=== PATIENT | female | born 1995 | race American Indian/Alaskan Native ===

== ENCOUNTER 2019-11-18 23:52 | Outpatient (CLI) | payer OTHER ==
[2019-11-19 00:04] VITALS: BP 122/71
--- NOTE | 2019-11-19 01:24 | Ultrasound Report ---
ULTRASOUND OBSTETRIC LIMITED INDICATION / CLINICAL INFORMATION: questionable SROM. Clinical Gestational Age (GA): 38.4 weeks.days COMPARISON: None available. FINDINGS: HEART RATE (beats per minute): 134 AMNIOTIC FLUID INDEX (cm) = 17.3 (normal = 7-24 cm) PRESENTATION: Cephalic. ADDITIONAL FINDINGS: None. IMPRESSION: 1. No acute abnormality. Normal amniotic fluid index. Signer Name: Cindy Webb MD Signed: 11/19/2019 1:19 AM Workstation Name: [id number]
== END 2019-11-19 01:00 | disposition home or self-care (01) ==
LOC: TRG 23:52 → APU 23:58 → TRG 11-19 01:00
PROVIDERS: ATTEND Obstetrics & Gynecology
DX: O47.1 False labor at or after 37 completed weeks of gestation (principal); Z3A.38 38 weeks gestation of pregnancy
CPT/HCPCS: 59025; 76815

== ENCOUNTER 2019-11-21 12:01 | Outpatient (CLI) | payer OTHER ==
[2019-11-21] MEDS ORDERED: ONDANSETRON 4 MG/2 ML INJ IV ONE (12:09)
[2019-11-21] MEDS ORDERED: LACTATED RINGERS 1,000 ML IV ONE (12:10)
[2019-11-21 12:47] VITALS: BP 121/64
[2019-11-21] MEDS ORDERED: ACETAMINOPHEN 500 MG TAB PO ONE (13:00)
== END 2019-11-21 14:55 | disposition home or self-care (01) ==
LOC: TRG 12:01 → APU 12:01 → TRG 14:55
PROVIDERS: ATTEND Obstetrics & Gynecology
DX: O62.9 Abnormality of forces of labor, unspecified (principal); Z3A.38 38 weeks gestation of pregnancy; Z87.891 Personal history of nicotine dependence
CPT/HCPCS: 59025; 96361; 96374; J2405; J7120; 96360

== ENCOUNTER 2019-11-21 23:40 | Inpatient (IN) | payer OTHER ==
[2019-11-22] MEDS ORDERED: TERBUTALINE 1 MG/1 ML INJ IVP PRN (01:31)
[2019-11-22] MEDS ORDERED: LIDOCAINE (2%) 20 MG/1 ML VIAL 20 ML MDV INFILTRATI ONE (01:31)
[2019-11-22] MEDS ORDERED: PROMETHAZINE 25 MG TAB PO PRN ×2 (01:31→21:51)
[2019-11-22] MEDS ORDERED: TERBUTALINE 1 MG/1 ML INJ SUB-Q PRN (01:31)
[2019-11-22] MEDS ORDERED: NALOXONE 0.4 MG/1 ML INJ IV PRN (01:31)
[2019-11-22] MEDS ORDERED: MINERAL OIL 30 ML ORAL LIQD PO PRN (01:31)
[2019-11-22] MEDS ORDERED: ePHEDrine SULFATE 50 MG/1 ML INJ IV PRN ×2 (01:31→04:15)
[2019-11-22] MEDS ORDERED: fentaNYL 100 MCG/2 ML INJ IV PRN (01:31)
--- NOTE | 2019-11-22 01:39 | History and Physical Report ---
History of Present Illness Date of examination: 11/22/19 (SROM@ 11pm for mec stained fluid) Date of admission: 11/22/2019 Chief complaint: I'm having contractions and my water broke at 11pm. The fluid coming out was brown. History of present illness: EDC Confirmation: 11/29/2019 Gestational Age: 8 3/7 weeks Past History : 1 Term Births: 0 Premature Births: 0 Living Children: 0 Para: 0 Mult. Births: 0 Prev : 0 Prev. attempt? 0 Aborta: 0 Elect. Ab: 0 Spont. 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 lives with mother and siblings denies alcohol and drug use. quit tobacco apr 2019 unemployed Infection History Hx of STD: none HIV Risk Eval: no Hepatitis B Risk Eval: low risk Personal hx. of genital herpes: no Partner hx. of genital herpes: no Rash, Viral, or Febrile illness since last LMP? no Varicella/Chicken Pox Status: Immunized TB Risk: no Genetic History Congenital Heart Defect: Mom: no Dad: no Kam Disease: Mom: no Dad: no Thalassemia Mom: no Dad: no Neural Tube Defect Mom: no Dad: no Down's Syndrome Mom: no Dad: yes Comments: FOCs nephew possible +DS? Nahun-Sachs Mom: no Dad: no Sickle Cell Disease/Trait Mom: no Dad: no Hemophilia Mom: no Dad: no Muscular Dystrophy Mom: no Dad: no Cystic Fibrosis Mom: no Dad: no [place] Chorea Mom: no Dad: no Mental Retardation Mom: no Dad: no Fragile X Mom: no Dad: no Other Genetic/Chromosomal Disorder Mom: no Dad: no Child w/other defect Mom: no Dad: no Enviromental Exposures Enviromental Exposures Reviewed Xray Exposure: no Medication, drug, or alcohol use since LMP: no Chemical/Other Exposure: no Exposure to Cat Liter: no Hx of Parvovirus (Fifth Disease): no Occupational Exposure to Children: none Active Medications: None Current Allergies: * BETADINE (Critical) Past History Past Medical History: no pertinent history Past Surgical History: no surgical history Family/Genetic History: none Social history: no significant social history - Obstetrical History Expected Date of Delivery: 11/29/19 Actual Gestation: 39 Week(s) 0 Day(s) : 1 Para: 0 Hx # Term Pregnancies: 0 Number of Pregnancies: 0 Spontaneous Abortions: 0 Induced : 0 Number of Living Children: 0 Medications and Allergies Allergies Allergy/AdvReac Type Severity Reaction Status Date / Time povidone-iodine Allergy Rash Unverified 11/18/19 23:53 [From Betadine] soap [From Betadine] Allergy Rash Unverified 11/18/19 23:53 Active Meds: Active Medications Lidocaine (Xylocaine 2%) 20 ml INFILTRATI ONCE ONE Stop: 11/22/19 01:32 Terbutaline Sulfate (Brethine) 0.25 mg SUB-Q ONCE PRN PRN Reason: Hyperstimulation/Hypertonicity Terbutaline Sulfate (Brethine) 0.25 mg IVP ONCE PRN PRN Reason: Hyperstimulation/Hypertonicity Review of Systems All systems: negative - Vital Signs Vital signs: Vital Signs Pulse BP Pulse Ox 95 H 124/73 100 11/22/19 00:03 11/22/19 00:03 11/22/19 00:03 Temp Pulse Resp BP Pulse Ox 98.4 F 87 18 124/73 96 11/22/19 00:18 11/22/19 01:13 11/22/19 00:18 11/22/19 00:18 11/22/19 01:13 - Physical Exam Breasts: Positive: deferred Cardiovascular: Regular rate, Normal S1, Normal S2 Lungs: Positive: Normal air movement Abdomen: Positive: normal appearance, soft Genitourinary (Female): Positive: normal external genitalia, normal perenium Vulva: both: normal Vagina: Positive: normal moisture. Negative: discharge Cervix: Negative: lesion, discharge Uterus: Positive: normal size, normal contour Anus/Rectum: Positive: normal perianal skin, heme negative. Negative: rectal mass, hemorrhoids Extremities: Positive: normal Deep Tendon Reflex Grade: Normal +2 - Obstetrical FHR: auscultation normal, category 1 Uterine Contraction Monitor Mode: External Cervical Dilatation: 2 (Brown fluid noted on exam glove) Cervical Effacement Percentage: 60 station: -2 Uterine Contraction Pattern: Regular Uterine Tone Measurement Phase: Resting Uterine Contraction Intensity: Moderate Results All other labs normal. GBS NEGATIVE HBsAg Screen Negative Negative *1 RPR Non Reactive Non Reactive *2 Rubella Antibodies, IgG 1.44 index Immune >0.99 *3 Non-immune <0.90 Equivocal 0.90 - 0.99 Immune >0.99 ABO Grouping O *4 Rh Factor Positive *5 Please note: Prior records for this patient's ABO / Rh type are not available for additional verification. Antibody Screen Negative Negative *6 WBC 5.5 x10E3/uL 3.4-10.8 *7 RBC 3.93 x10E6/uL 3.77-5.28 *8 Hemoglobin 11.9 g/dL 11.1-15.9 *9 Hematocrit 36.9 % 34.0-46.6 *10 MCV 94 fL 79-97 *11 MCH 30.3 pg 26.6-33.0 *12 MCHC 32.2 g/dL 31.5-35.7 *13 RDW 14.1 % 12.3-15.4 *14 Platelets 265 x10E3/uL 150-450 *15 Neutrophils 64 % Not Estab. *16 Lymphs 28 % Not Estab. *17 Monocytes 6 % Not Estab. *18 Eos 1 % Not Estab. *19 Basos 0 % Not Estab. *20 ! Immature Cells <No Reported Value> *21 Neutrophils (Absolute) 3.5 x10E3/uL 1.4-7.0 *22 Lymphs (Absolute) 1.6 x10E3/uL 0.7-3.1 *23 Monocytes(Absolute) 0.4 x10E3/uL 0.1-0.9 *24 Eos (Absolute) 0.0 x10E3/uL 0.0-0.4 *25 Baso (Absolute) 0.0 x10E3/uL 0.0-0.2 *26 ! Immature Granulocytes 1 % Not Estab. *27 ! Immature Grans (Abs) 0.0 x10E3/uL 0.0-0.1 *28 ! NRBC <No Reported Value> *29 Hematology Comments: <No Reported Value> *30 Tests: (2) HB Solu + Rflx Fra (739745) Hemoglobin (Hgb) Solubility Negative Negative *31 Tests: (3) Panel 653919 ([id number]) HIV Screen 4th Generation wRfx Non Reactive Non Reactive *32 Tests: (4) HCV Ab w/Rflx to Verification (061908) ! HCV Ab <0.1 s/co ratio 0.0-0.9 *33 Tests: (5) Comment: ([id number]) ! Comment: SPR *34 Assessment and Plan A: 24 y.o. @ term. SROM @ 11pm for mec stained fluid. Cervical exam /-2. P: Admit to L&D. Pitocin per protocol. Fluid bolus for epidural placement when ready. - Patient Problems (1) Rupture of membranes with meconium present Current Visit: Yes Status: Acute Plan to address problem: 1. [facility] team to be present during delivery. 2. Monitor maternal temperature. 3. Monitor status during labor. (2) 38 weeks gestation of Current Visit: Yes Status: Acute Plan to address problem: Monitor maternal and status during labor.
[2019-11-22] MEDS ORDERED: diphenhydrAMINE 25 MG CAP PO PRN (01:52)
[2019-11-22] MEDS ORDERED: OXYTOCIN DRIP 30 UNITS/500 ML BAG IV SCH (02:00)
[2019-11-22] MEDS ORDERED: OXYTOCIN 20 UNIT/1000ML DRIP 20 UNITS/1,000 ML BAG IV SCH ×2 (02:00→21:51)
--- NOTE | 2019-11-22 03:41 | Progress Note ---
Assessment and Plan A: 24 y.o. @ term, SROM @ 11pm on 11/20 for mec stained fluid. Crying out in pain. Cervical exam 2/80/-2. Contractions q 2minutes. P: Fluid bolus started for epidural placement. Pain medication while awaiting epidural placement. Anticipate . - Patient Problems (1) Rupture of membranes with meconium present Current Visit: Yes Status: Acute (2) 38 weeks gestation of Current Visit: Yes Status: Acute Subjective - Subjective Date of service: 11/22/19 (More painful contractions.) Principal diagnosis: SROM for mec stained fluid @ term Interval history: EDC Confirmation: 11/29/2019 Gestational Age: 8 3/7 weeks Past History : 1 Term Births: 0 Premature Births: 0 Living Children: 0 Para: 0 Mult. Births: 0 Prev : 0 Prev. attempt? 0 Aborta: 0 Elect. Ab: 0 Spont. 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 lives with mother and siblings denies alcohol and drug use. quit tobacco apr 2019 unemployed Infection History Hx of STD: none HIV Risk Eval: no Hepatitis B Risk Eval: low risk Personal hx. of genital herpes: no Partner hx. of genital herpes: no Rash, Viral, or Febrile illness since last LMP? no Varicella/Chicken Pox Status: Immunized TB Risk: no Genetic History Congenital Heart Defect: Mom: no Dad: no Kam Disease: Mom: no Dad: no Thalassemia Mom: no Dad: no Neural Tube Defect Mom: no Dad: no Down's Syndrome Mom: no Dad: yes Comments: FOCs nephew possible +DS? Nahun-Sachs Mom: no Dad: no Sickle Cell Disease/Trait Mom: no Dad: no Hemophilia Mom: no Dad: no Muscular Dystrophy Mom: no Dad: no Cystic Fibrosis Mom: no Dad: no [place] Chorea Mom: no Dad: no Mental Retardation Mom: no Dad: no Fragile X Mom: no Dad: no Other Genetic/Chromosomal Disorder Mom: no Dad: no Child w/other defect Mom: no Dad: no Enviromental Exposures Enviromental Exposures Reviewed Xray Exposure: no Medication, drug, or alcohol use since LMP: no Chemical/Other Exposure: no Exposure to Cat Liter: no Hx of Parvovirus (Fifth Disease): no Occupational Exposure to Children: none Active Medications: None Current Allergies: * BETADINE (Critical) Patient reports: other (Patient screaming out in pain from contractions. ) Objective - Vital Signs Vital Signs: Vital Signs - 12hr 11/22/19 11/22/19 11/22/19 00:03 00:08 00:13 Temperature Pulse Rate 95 H 104 H 110 H Respiratory Rate Blood Pressure 124/73 Blood Pressure [Right] O2 Sat by Pulse 100 99 100 Oximetry 11/22/19 11/22/19 11/22/19 00:15 00:18 00:23 Temperature 98.4 F Pulse Rate 90 85 96 H Respiratory 18 Rate Blood Pressure Blood Pressure 124/73 [Right] O2 Sat by Pulse 91 99 99 Oximetry 11/22/19 11/22/19 11/22/19 00:28 00:33 00:36 Temperature Pulse Rate 90 94 H 85 Respiratory Rate Blood Pressure Blood Pressure [Right] O2 Sat by Pulse 99 98 94 Oximetry 11/22/19 11/22/19 11/22/19 00:38 00:41 00:43 Temperature Pulse Rate 82 104 H 86 Respiratory Rate Blood Pressure Blood Pressure [Right] O2 Sat by Pulse 100 82 L 99 Oximetry 11/22/19 11/22/19 11/22/19 00:47 00:48 00:53 Temperature Pulse Rate 102 H 101 H 90 Respiratory Rate Blood Pressure Blood Pressure [Right] O2 Sat by Pulse 91 99 97 Oximetry 11/22/19 11/22/19 11/22/19 00:58 01:03 01:08 Temperature Pulse Rate 83 96 H 93 H Respiratory Rate Blood Pressure Blood Pressure [Right] O2 Sat by Pulse 99 97 98 Oximetry 11/22/19 11/22/19 11/22/19 01:13 02:13 02:15 Temperature Pulse Rate 87 90 101 H Respiratory Rate Blood Pressure 98/56 Blood Pressure [Right] O2 Sat by Pulse 96 98 Oximetry 11/22/19 11/22/19 11/22/19 02:20 02:25 02:30 Temperature Pulse Rate 96 H 98 H 84 Respiratory Rate Blood Pressure Blood Pressure [Right] O2 Sat by Pulse 98 98 98 Oximetry 11/22/19 11/22/19 11/22/19 03:05 03:24 03:29 Temperature Pulse Rate 82 105 H 95 H Respiratory 18 Rate Blood Pressure Blood Pressure 133/65 [Right] O2 Sat by Pulse 100 100 Oximetry 11/22/19 03:34 Temperature Pulse Rate 92 H Respiratory Rate Blood Pressure Blood Pressure [Right] O2 Sat by Pulse 100 Oximetry - Exam Breasts: deferred Cardiovascular: Regular rate Lungs: Normal air movement Abdomen: Present: normal appearance, soft. Absent: distention, tenderness Vulva: both: normal Uterus: Present: normal FHR: auscultation normal Uterine Contraction Monitor Mode: External Cervical Dilatation: 2 (Pt screaming out in pain, stating IV meds not working. ) Cervical Effacement Percentage: 80 station: -2 Uterine Contraction Pattern: Regular Uterine Tone Measurement Phase: Resting Uterine Contraction Intensity: Moderate Extremities: normal Deep Tendon Reflex Grade: Normal +2
[2019-11-22] MEDS ORDERED: DEXMEDETOMIDINE 200 MCG/2 ML VIAL IV ONE (03:58)
[2019-11-22] MEDS ORDERED: NALOXONE 2 MG/2 ML INJ IV PRN (04:15)
--- NOTE | 2019-11-22 04:16 | Anesthesia Consultation ---
Anesthesia Consult and Med Hx Date of service: 11/22/19 - Airway Anesthetic Teeth Evaluation: Good ROM Head & Neck: Adequate Mental/Hyoid Distance: Adequate Mallampati Class: Class II Intubation Access Assessment: Probably Good - Pulmonary Exam CTA: Yes - Cardiac Exam Cardiac Exam: RRR - Pre-Operative Health Status ASA Pre-Surgery Classification: ASA2 Proposed Anesthetic Plan: Epidural - Pulmonary Hx Asthma: No COPD: No - Cardiovascular System Hx Hypertension: No - Central Nervous System Hx Seizures: No Hx Psychiatric Problems: No - Endocrine Hx Renal Disease: No Hx End Stage Renal Disease: No Hx Hypothyroidism: No Hx Hyperthyroidism: No - Hematic Hx Anemia: No Hx Sickle Cell Disease: No - Other Systems Hx Alcohol Use: No
[2019-11-22] MEDS: LACTATED RINGERS 1,000 ML IV SCH ×4 (04:36→15:49)
[2019-11-22 04:37] LABS: Hematocrit 36.7 % (30.3-42.9); Mean Corpuscular HGB Conc 33 % (30-34); Mean Corpuscular Volume 82 fl (79-97); Platelet Count 319 K/mm3 (140-440); Red Blood Count 4.46 M/mm3 (3.65-5.03); Red Cell Distribution Width 15.2 % (13.2-15.2)
[2019-11-22] MEDS: fentaNYL-BUPIV 2 MCG/ML-0.125% 200 MCG/100 ML BAG EPIDURAL SCH ×2 (05:07→11:47)
[2019-11-22] MEDS ORDERED: BUPIVACAINE/PF (0.25%) 2.5 MG/ML 10 ML VIAL INFILTRATI ONE (10:29)
[2019-11-22] MEDS ORDERED: diphenhydrAMINE 50 MG/ML VIAL IV ONE (11:07)
[2019-11-22] MEDS ORDERED: diphenhydrAMINE 50 MG/ML VIAL ONE (11:10)
[2019-11-22] MEDS ORDERED: NalbUPHINE 10 MG/1 ML INJ ONE (11:12)
--- NOTE | 2019-11-22 11:14 | Progress Note ---
Assessment and Plan patient has functioning epidural but is overwhelmed with pressure and back pain. Epidural has been replaced twice, anesthesia offered to replace again since bolus has not relieved pain but explained that it is unlikely the pain she is feeling will be helped with epidural. Cervix is now edematous from patient pushing down with every ctx. Attempting to utilize different positions to help with pain but patient does not tolerate. Will reduce pitocin to 2mU and try dose of IV benadryl and sedation. - Patient Problems (1) 39 weeks gestation of Current Visit: Yes Status: Acute (2) Rupture of membranes with meconium present Current Visit: Yes Status: Acute Subjective - Subjective Date of service: 11/22/19 Principal diagnosis: IUP @ 39 weeks, Laboring, mec stained fluid Patient reports: other (Patient screaming out in pain from contractions. ) Objective - Vital Signs Vital Signs: Vital Signs - 12hr 11/22/19 11/22/19 11/22/19 00:03 00:08 00:13 Temperature Pulse Rate 95 H 104 H 110 H Respiratory Rate Blood Pressure 124/73 Blood Pressure [Right] O2 Sat by Pulse 100 99 100 Oximetry 11/22/19 11/22/19 11/22/19 00:15 00:18 00:23 Temperature 98.4 F Pulse Rate 90 85 96 H Respiratory 18 Rate Blood Pressure Blood Pressure 124/73 [Right] O2 Sat by Pulse 91 99 99 Oximetry 11/22/19 11/22/19 11/22/19 00:28 00:33 00:36 Temperature Pulse Rate 90 94 H 85 Respiratory Rate Blood Pressure Blood Pressure [Right] O2 Sat by Pulse 99 98 94 Oximetry 11/22/19 11/22/19 11/22/19 00:38 00:41 00:43 Temperature Pulse Rate 82 104 H 86 Respiratory Rate Blood Pressure Blood Pressure [Right] O2 Sat by Pulse 100 82 L 99 Oximetry 11/22/19 11/22/19 11/22/19 00:47 00:48 00:53 Temperature Pulse Rate 102 H 101 H 90 Respiratory Rate Blood Pressure Blood Pressure [Right] O2 Sat by Pulse 91 99 97 Oximetry 11/22/19 11/22/19 11/22/19 00:58 01:03 01:08 Temperature Pulse Rate 83 96 H 93 H Respiratory Rate Blood Pressure Blood Pressure [Right] O2 Sat by Pulse 99 97 98 Oximetry 0411/22/19 11/22/19 01:13 02:13 02:15 Temperature Pulse Rate 87 90 101 H Respiratory Rate Blood Pressure 98/56 Blood Pressure [Right] O2 Sat by Pulse 96 98 Oximetry 11/22/19 11/22/19 11/22/19 02:20 02:25 02:30 Temperature Pulse Rate 96 H 98 H 84 Respiratory Rate Blood Pressure Blood Pressure [Right] O2 Sat by Pulse 98 98 98 Oximetry 11/22/19 11/22/19 11/22/19 03:05 03:22 03:24 Temperature Pulse Rate 82 105 H Respiratory 18 18 Rate Blood Pressure Blood Pressure 133/65 [Right] O2 Sat by Pulse 100 Oximetry 11/22/19 11/22/19 11/22/19 03:29 03:34 03:39 Temperature Pulse Rate 95 H 92 H 100 H Respiratory Rate Blood Pressure Blood Pressure [Right] O2 Sat by Pulse 100 100 98 Oximetry 11/22/19 11/22/19 11/22/19 03:42 03:44 03:49 Temperature Pulse Rate 81 81 97 H Respiratory Rate Blood Pressure Blood Pressure [Right] O2 Sat by Pulse 92 99 100 Oximetry 11/22/19 11/22/19 11/22/19 04:00 04:01 04:06 Temperature Pulse Rate 34 L 115 H 87 Respiratory Rate Blood Pressure Blood Pressure [Right] O2 Sat by Pulse 83 L 96 100 Oximetry 11/22/19 11/22/19 11/22/19 04:11 04:13 04:16 Temperature Pulse Rate 87 67 75 Respiratory Rate Blood Pressure 121/60 Blood Pressure [Right] O2 Sat by Pulse 96 100 Oximetry 11/22/19 11/22/19 11/22/19 04:18 04:21 04:24 Temperature Pulse Rate 68 62 74 Respiratory Rate Blood Pressure 115/57 115/66 Blood Pressure [Right] O2 Sat by Pulse 100 Oximetry 11/22/19 11/22/19 11/22/19 04:26 04:29 04:31 Temperature Pulse Rate 76 71 82 Respiratory Rate Blood Pressure 138/59 Blood Pressure [Right] O2 Sat by Pulse 100 99 Oximetry 11/22/19 11/22/19 11/22/19 04:34 04:36 04:39 Temperature Pulse Rate 66 75 70 Respiratory Rate Blood Pressure 122/61 127/69 Blood Pressure [Right] O2 Sat by Pulse 100 Oximetry 11/22/19 11/22/19 11/22/19 04:41 04:43 04:46 Temperature Pulse Rate 67 84 84 Respiratory Rate Blood Pressure 112/58 Blood Pressure [Right] O2 Sat by Pulse 100 100 Oximetry 11/22/19 11/22/19 11/22/19 04:48 04:51 04:54 Temperature Pulse Rate 81 79 80 Respiratory Rate Blood Pressure 108/59 98/54 Blood Pressure [Right] O2 Sat by Pulse 99 Oximetry 11/22/19 11/22/19 11/22/19 04:56 05:00 05:01 Temperature Pulse Rate 100 H 82 90 Respiratory Rate Blood Pressure 95/51 Blood Pressure [Right] O2 Sat by Pulse 100 99 Oximetry 11/22/19 11/22/19 11/22/19 05:04 05:06 05:11 Temperature Pulse Rate 64 87 74 Respiratory Rate Blood Pressure 109/59 Blood Pressure [Right] O2 Sat by Pulse 100 99 Oximetry 11/22/19 11/22/19 11/22/19 05:16 05:21 05:24 Temperature Pulse Rate 82 82 81 Respiratory Rate Blood Pressure 107/63 Blood Pressure [Right] O2 Sat by Pulse 100 100 Oximetry 11/22/19 11/22/19 11/22/19 05:26 05:31 05:36 Temperature Pulse Rate 90 92 H 96 H Respiratory Rate Blood Pressure Blood Pressure [Right] O2 Sat by Pulse 99 99 100 Oximetry 11/22/19 11/22/19 11/22/19 05:38 05:41 05:46 Temperature Pulse Rate 108 H 88 90 Respiratory Rate Blood Pressure 88/49 Blood Pressure [Right] O2 Sat by Pulse 100 100 Oximetry 11/22/19 11/22/19 11/22/19 05:51 05:54 05:56 Temperature Pulse Rate 79 80 81 Respiratory Rate Blood Pressure 111/58 Blood Pressure [Right] O2 Sat by Pulse 100 100 Oximetry 11/22/19 11/22/19 11/22/19 06:01 06:06 06:08 Temperature Pulse Rate 86 90 81 Respiratory Rate Blood Pressure 103/51 Blood Pressure [Right] O2 Sat by Pulse 99 99 Oximetry 11/22/19 11/22/19 11/22/19 06:11 06:16 06:21 Temperature Pulse Rate 84 83 75 Respiratory Rate Blood Pressure Blood Pressure [Right] O2 Sat by Pulse 100 98 100 Oximetry 11/22/19 11/22/19 11/22/19 06:25 06:26 06:31 Temperature Pulse Rate 74 73 77 Respiratory Rate Blood Pressure 113/59 Blood Pressure [Right] O2 Sat by Pulse 100 100 Oximetry 11/22/19 11/22/19 11/22/19 06:36 06:38 06:41 Temperature Pulse Rate 77 70 78 Respiratory Rate Blood Pressure 108/54 Blood Pressure [Right] O2 Sat by Pulse 100 100 Oximetry 11/22/19 11/22/19 11/22/19 06:46 06:51 06:53 Temperature Pulse Rate 86 79 73 Respiratory Rate Blood Pressure 100/54 Blood Pressure [Right] O2 Sat by Pulse 100 100 Oximetry 11/22/19 11/22/19 11/22/19 06:56 07:01 07:06 Temperature Pulse Rate 96 H 75 95 H Respiratory Rate Blood Pressure Blood Pressure [Right] O2 Sat by Pulse 100 100 100 Oximetry 11/22/19 11/22/19 11/22/19 07:09 07:11 07:16 Temperature Pulse Rate 78 92 H 108 H Respiratory Rate Blood Pressure 103/72 Blood Pressure [Right] O2 Sat by Pulse 99 100 Oximetry 11/22/19 11/22/19 11/22/19 07:21 07:23 07:26 Temperature Pulse Rate 88 99 H 81 Respiratory Rate Blood Pressure 110/56 Blood Pressure [Right] O2 Sat by Pulse 98 100 Oximetry 11/22/19 11/22/19 11/22/19 07:31 07:36 07:40 Temperature Pulse Rate 90 84 92 H Respiratory Rate Blood Pressure 95/56 Blood Pressure [Right] O2 Sat by Pulse 100 100 Oximetry 11/22/19 11/22/19 11/22/19 07:41 07:46 07:51 Temperature Pulse Rate 96 H 93 H 104 H Respiratory Rate Blood Pressure Blood Pressure [Right] O2 Sat by Pulse 100 100 100 Oximetry 11/22/19 11/22/19 11/22/19 07:53 07:56 08:01 Temperature Pulse Rate 104 H 125 H 97 H Respiratory Rate Blood Pressure 93/52 Blood Pressure [Right] O2 Sat by Pulse 100 100 Oximetry 11/22/19 11/22/19 11/22/19 08:06 08:08 08:11 Temperature Pulse Rate 117 H 114 H 107 H Respiratory Rate Blood Pressure 92/49 Blood Pressure [Right] O2 Sat by Pulse 100 100 Oximetry 11/22/19 11/22/19 11/22/19 08:12 08:16 08:21 Temperature Pulse Rate 110 H 109 H 92 H Respiratory Rate Blood Pressure 102/62 Blood Pressure [Right] O2 Sat by Pulse 100 100 Oximetry 11/22/19 11/22/19 11/22/19 08:23 08:26 08:31 Temperature Pulse Rate 93 H 101 H 95 H Respiratory Rate Blood Pressure 119/74 Blood Pressure [Right] O2 Sat by Pulse 100 100 Oximetry 11/22/19 11/22/19 11/22/19 08:36 08:39 08:41 Temperature Pulse Rate 100 H 94 H 93 H Respiratory Rate Blood Pressure 117/73 Blood Pressure [Right] O2 Sat by Pulse 86 86 100 Oximetry 11/22/19 11/22/19 11/22/19 08:46 08:51 08:53 Temperature Pulse Rate 93 H 90 80 Respiratory Rate Blood Pressure 105/61 Blood Pressure [Right] O2 Sat by Pulse 100 100 Oximetry 11/22/19 11/22/19 11/22/19 08:56 08:59 09:01 Temperature 97.9 F Pulse Rate 89 91 H Respiratory Rate Blood Pressure Blood Pressure [Right] O2 Sat by Pulse 99 99 Oximetry 11/22/19 11/22/19 11/22/19 09:06 09:08 09:11 Temperature Pulse Rate 91 H 86 89 Respiratory Rate Blood Pressure 107/61 Blood Pressure [Right] O2 Sat by Pulse 99 98 Oximetry 11/22/19 11/22/19 11/22/19 09:16 09:21 09:24 Temperature Pulse Rate 90 91 H 84 Respiratory Rate Blood Pressure 110/62 Blood Pressure [Right] O2 Sat by Pulse 99 99 Oximetry 11/22/19 11/22/19 11/22/19 09:26 09:31 09:36 Temperature Pulse Rate 97 H 93 H 92 H Respiratory Rate Blood Pressure Blood Pressure [Right] O2 Sat by Pulse 98 98 99 Oximetry 11/22/19 11/22/19 11/22/19 09:38 09:41 09:46 Temperature Pulse Rate 97 H 90 109 H Respiratory Rate Blood Pressure 106/60 Blood Pressure [Right] O2 Sat by Pulse 98 96 Oximetry 04/18/20 04/18/20 04/18/20 09:51 09:55 09:56 Temperature Pulse Rate 96 H 95 H 109 H Respiratory Rate Blood Pressure 110/61 Blood Pressure [Right] O2 Sat by Pulse 98 99 Oximetry 11/22/19 11/22/19 11/22/19 10:01 10:06 10:09 Temperature Pulse Rate 103 H 100 H 109 H Respiratory Rate Blood Pressure 113/61 Blood Pressure [Right] O2 Sat by Pulse 99 98 Oximetry 11/22/19 11/22/19 11/22/19 10:11 10:16 10:21 Temperature Pulse Rate 103 H 103 H 99 H Respiratory Rate Blood Pressure Blood Pressure [Right] O2 Sat by Pulse 98 99 98 Oximetry 11/22/19 11/22/19 11/22/19 10:25 10:26 10:39 Temperature Pulse Rate 96 H 109 H 107 H Respiratory Rate Blood Pressure 108/57 126/72 Blood Pressure [Right] O2 Sat by Pulse 100 Oximetry 11/22/19 10:53 Temperature Pulse Rate 101 H Respiratory Rate Blood Pressure 130/72 Blood Pressure [Right] O2 Sat by Pulse Oximetry - Exam Cardiovascular: Regular rate Lungs: Normal air movement Abdomen: Present: normal appearance, soft FHR: category 2 Uterine Contraction Monitor Mode: External Cervical Dilatation: 6.5 Cervical Effacement Percentage: 80 station: 0 Uterine Contraction Frequency (min): 2-3 Uterine Contraction Duration: 60 Uterine Contraction Pattern: Regular Uterine Tone Measurement Phase: Contraction Uterine Contraction Intensity: Strong/Firm Extremities: normal Deep Tendon Reflex Grade: Normal +2 - Labs Labs: Abnormal Labs 11/22/19 03:59 MCH 27 L Laboratory Results - last 24 hr 11/22/19 11/22/19 11/22/19 03:59 03:59 03:59 WBC 9.6 RBC 4.46 Hgb 12.0 Hct 36.7 MCV 82 MCH 27 L MCHC 33 RDW 15.2 Plt Count 319 Syphilis IgG Antibody Non-reactive Blood Type O POSITIVE Antibody Screen Negative
[2019-11-22] MEDS ORDERED: NalbUPHINE 10 MG/1 ML INJ IV ONE (11:26)
[2019-11-22] MEDS ORDERED: NalbUPHINE 10 MG/1 ML INJ IV PRN (11:26)
[2019-11-22] MEDS ORDERED: BUPIVACAINE/PF (0.5%) 5 MG/1 ML 10 ML VIAL INFILTRATI ONE (12:04)
--- NOTE | 2019-11-22 13:33 | Progress Note ---
Assessment and Plan patient comfortable s/p epidural replacement, sleeping without any concerns. Very limited cervical change noted since last exam. IUPC placed without difficulty and working well. Fever of 101.6 noted. Urine output decreased. Will give IVF bolus and monitor closely. Now that patient is comfortable, will increase pitocin for adequate labor and reposition patient frequently. - Patient Problems (1) 39 weeks gestation of Current Visit: Yes Status: Acute (2) Rupture of membranes with meconium present Current Visit: Yes Status: Acute (3) Fever Current Visit: Yes Status: Acute Qualifiers: Fever type: fever during labor (maternal) Qualified Code(s): O75.2 - Pyrexia during labor, not elsewhere classified Plan to address problem: Start Ampicillin Tylenol PO Closely monitor for s/s chorio Subjective - Subjective Date of service: 11/22/19 Principal diagnosis: IUP @ 39 weeks, Laboring, mec stained fluid Patient reports: new complaints (comfortable with epidural replacement) Objective - Vital Signs Vital Signs: Vital Signs - 12hr 11/22/19 11/22/19 11/22/19 02:13 02:15 02:20 Temperature Pulse Rate 90 101 H 96 H Respiratory Rate Blood Pressure 98/56 Blood Pressure [Right] O2 Sat by Pulse 98 98 Oximetry 11/22/19 11/22/19 11/22/19 02:25 02:30 03:05 Temperature Pulse Rate 98 H 84 82 Respiratory 18 Rate Blood Pressure Blood Pressure 133/65 [Right] O2 Sat by Pulse 98 98 Oximetry 11/22/19 11/22/19 11/22/19 03:22 03:24 03:29 Temperature Pulse Rate 105 H 95 H Respiratory 18 Rate Blood Pressure Blood Pressure [Right] O2 Sat by Pulse 100 100 Oximetry 11/22/19 11/22/19 11/22/19 03:34 03:39 03:42 Temperature Pulse Rate 92 H 100 H 81 Respiratory Rate Blood Pressure Blood Pressure [Right] O2 Sat by Pulse 100 98 92 Oximetry 11/22/19 11/22/19 11/22/19 03:44 03:49 04:00 Temperature Pulse Rate 81 97 H 34 L Respiratory Rate Blood Pressure Blood Pressure [Right] O2 Sat by Pulse 99 100 83 L Oximetry 11/22/19 11/22/19 11/22/19 04:01 04:06 04:11 Temperature Pulse Rate 115 H 87 87 Respiratory Rate Blood Pressure Blood Pressure [Right] O2 Sat by Pulse 96 100 96 Oximetry 11/22/19 11/22/19 11/22/19 04:13 04:16 04:18 Temperature Pulse Rate 67 75 68 Respiratory Rate Blood Pressure 121/60 115/57 Blood Pressure [Right] O2 Sat by Pulse 100 Oximetry 11/22/19 11/22/19 11/22/19 04:21 04:24 04:26 Temperature Pulse Rate 62 74 76 Respiratory Rate Blood Pressure 115/66 Blood Pressure [Right] O2 Sat by Pulse 100 100 Oximetry 11/22/19 11/22/19 11/22/19 04:29 04:31 04:34 Temperature Pulse Rate 71 82 66 Respiratory Rate Blood Pressure 138/59 122/61 Blood Pressure [Right] O2 Sat by Pulse 99 Oximetry 11/22/19 11/22/19 11/22/19 04:36 04:39 04:41 Temperature Pulse Rate 75 70 67 Respiratory Rate Blood Pressure 127/69 Blood Pressure [Right] O2 Sat by Pulse 100 100 Oximetry 11/22/19 11/22/19 11/22/19 04:43 04:46 04:48 Temperature Pulse Rate 84 84 81 Respiratory Rate Blood Pressure 112/58 108/59 Blood Pressure [Right] O2 Sat by Pulse 100 Oximetry 11/22/19 11/22/19 11/22/19 04:51 04:54 04:56 Temperature Pulse Rate 79 80 100 H Respiratory Rate Blood Pressure 98/54 Blood Pressure [Right] O2 Sat by Pulse 99 100 Oximetry 11/22/19 11/22/19 11/22/19 05:00 05:01 05:04 Temperature Pulse Rate 82 90 64 Respiratory Rate Blood Pressure 95/51 109/59 Blood Pressure [Right] O2 Sat by Pulse 99 Oximetry 11/22/19 11/22/19 11/22/19 05:06 05:11 05:16 Temperature Pulse Rate 87 74 82 Respiratory Rate Blood Pressure Blood Pressure [Right] O2 Sat by Pulse 100 99 100 Oximetry 11/22/19 11/22/19 11/22/19 05:21 05:24 05:26 Temperature Pulse Rate 82 81 90 Respiratory Rate Blood Pressure 107/63 Blood Pressure [Right] O2 Sat by Pulse 100 99 Oximetry 11/22/19 11/22/19 11/22/19 05:31 05:36 05:38 Temperature Pulse Rate 92 H 96 H 108 H Respiratory Rate Blood Pressure 88/49 Blood Pressure [Right] O2 Sat by Pulse 99 100 Oximetry 11/22/19 11/22/19 11/22/19 05:41 05:46 05:51 Temperature Pulse Rate 88 90 79 Respiratory Rate Blood Pressure Blood Pressure [Right] O2 Sat by Pulse 100 100 100 Oximetry 11/22/19 11/22/19 11/22/19 05:54 05:56 06:01 Temperature Pulse Rate 80 81 86 Respiratory Rate Blood Pressure 111/58 Blood Pressure [Right] O2 Sat by Pulse 100 99 Oximetry 11/22/19 11/22/19 11/22/19 06:06 06:08 06:11 Temperature Pulse Rate 90 81 84 Respiratory Rate Blood Pressure 103/51 Blood Pressure [Right] O2 Sat by Pulse 99 100 Oximetry 11/22/19 11/22/19 11/22/19 06:16 06:21 06:25 Temperature Pulse Rate 83 75 74 Respiratory Rate Blood Pressure 113/59 Blood Pressure [Right] O2 Sat by Pulse 98 100 Oximetry 11/22/19 11/22/19 11/22/19 06:26 06:31 06:36 Temperature Pulse Rate 73 77 77 Respiratory Rate Blood Pressure Blood Pressure [Right] O2 Sat by Pulse 100 100 100 Oximetry 11/22/19 11/22/19 11/22/19 06:38 06:41 06:46 Temperature Pulse Rate 70 78 86 Respiratory Rate Blood Pressure 108/54 Blood Pressure [Right] O2 Sat by Pulse 100 100 Oximetry 11/22/19 11/22/19 11/22/19 06:51 06:53 06:56 Temperature Pulse Rate 79 73 96 H Respiratory Rate Blood Pressure 100/54 Blood Pressure [Right] O2 Sat by Pulse 100 100 Oximetry 11/22/19 11/22/19 11/22/19 07:01 07:06 07:09 Temperature Pulse Rate 75 95 H 78 Respiratory Rate Blood Pressure 103/72 Blood Pressure [Right] O2 Sat by Pulse 100 100 Oximetry 11/22/19 11/22/19 11/22/19 07:11 07:16 07:21 Temperature Pulse Rate 92 H 108 H 88 Respiratory Rate Blood Pressure Blood Pressure [Right] O2 Sat by Pulse 99 100 98 Oximetry 11/22/19 11/22/19 11/22/19 07:23 07:26 07:31 Temperature Pulse Rate 99 H 81 90 Respiratory Rate Blood Pressure 110/56 Blood Pressure [Right] O2 Sat by Pulse 100 100 Oximetry 11/22/19 11/22/19 11/22/19 07:36 07:40 07:41 Temperature Pulse Rate 84 92 H 96 H Respiratory Rate Blood Pressure 95/56 Blood Pressure [Right] O2 Sat by Pulse 100 100 Oximetry 11/22/19 11/22/19 11/22/19 07:46 07:51 07:53 Temperature Pulse Rate 93 H 104 H 104 H Respiratory Rate Blood Pressure 93/52 Blood Pressure [Right] O2 Sat by Pulse 100 100 Oximetry 11/22/19 11/22/19 11/22/19 07:56 08:01 08:06 Temperature Pulse Rate 125 H 97 H 117 H Respiratory Rate Blood Pressure Blood Pressure [Right] O2 Sat by Pulse 100 100 100 Oximetry 11/22/19 11/22/19 11/22/19 08:08 08:11 08:12 Temperature Pulse Rate 114 H 107 H 110 H Respiratory Rate Blood Pressure 92/49 102/62 Blood Pressure [Right] O2 Sat by Pulse 100 Oximetry 11/22/19 11/22/19 11/22/19 08:16 08:21 08:23 Temperature Pulse Rate 109 H 92 H 93 H Respiratory Rate Blood Pressure 119/74 Blood Pressure [Right] O2 Sat by Pulse 100 100 Oximetry 11/22/19 11/22/19 11/22/19 08:26 08:31 08:36 Temperature Pulse Rate 101 H 95 H 100 H Respiratory Rate Blood Pressure Blood Pressure [Right] O2 Sat by Pulse 100 100 86 Oximetry 11/22/19 11/22/19 11/22/19 08:39 08:41 08:46 Temperature Pulse Rate 94 H 93 H 93 H Respiratory Rate Blood Pressure 117/73 Blood Pressure [Right] O2 Sat by Pulse 86 100 100 Oximetry 11/22/19 11/22/19 11/22/19 08:51 08:53 08:56 Temperature Pulse Rate 90 80 89 Respiratory Rate Blood Pressure 105/61 Blood Pressure [Right] O2 Sat by Pulse 100 99 Oximetry 11/22/19 11/22/19 11/22/19 08:59 09:01 09:06 Temperature 97.9 F Pulse Rate 91 H 91 H Respiratory Rate Blood Pressure Blood Pressure [Right] O2 Sat by Pulse 99 99 Oximetry 11/22/19 11/22/19 11/22/19 09:08 09:11 09:16 Temperature Pulse Rate 86 89 90 Respiratory Rate Blood Pressure 107/61 Blood Pressure [Right] O2 Sat by Pulse 98 99 Oximetry 11/22/19 11/22/19 11/22/19 09:21 09:24 09:26 Temperature Pulse Rate 91 H 84 97 H Respiratory Rate Blood Pressure 110/62 Blood Pressure [Right] O2 Sat by Pulse 99 98 Oximetry 11/22/19 11/22/19 11/22/19 09:31 09:36 09:38 Temperature Pulse Rate 93 H 92 H 97 H Respiratory Rate Blood Pressure 106/60 Blood Pressure [Right] O2 Sat by Pulse 98 99 Oximetry 11/22/19 11/22/19 11/22/19 09:41 09:46 09:51 Temperature Pulse Rate 90 109 H 96 H Respiratory Rate Blood Pressure Blood Pressure [Right] O2 Sat by Pulse 98 96 98 Oximetry 11/22/19 11/22/19 11/22/19 09:55 09:56 10:01 Temperature Pulse Rate 95 H 109 H 103 H Respiratory Rate Blood Pressure 110/61 Blood Pressure [Right] O2 Sat by Pulse 99 99 Oximetry 11/22/19 11/22/19 11/22/19 10:06 10:09 10:11 Temperature Pulse Rate 100 H 109 H 103 H Respiratory Rate Blood Pressure 113/61 Blood Pressure [Right] O2 Sat by Pulse 98 98 Oximetry 11/22/19 11/22/19 11/22/19 10:16 10:21 10:25 Temperature Pulse Rate 103 H 99 H 96 H Respiratory Rate Blood Pressure 108/57 Blood Pressure [Right] O2 Sat by Pulse 99 98 Oximetry 11/22/19 11/22/19 11/22/19 10:26 10:39 10:53 Temperature Pulse Rate 109 H 107 H 101 H Respiratory Rate Blood Pressure 126/72 130/72 Blood Pressure [Right] O2 Sat by Pulse 100 Oximetry 11/22/19 11/22/19 11/22/19 11:08 11:23 11:55 Temperature Pulse Rate 106 H 85 100 H Respiratory Rate Blood Pressure 142/68 115/67 112/63 Blood Pressure [Right] O2 Sat by Pulse Oximetry 11/22/19 11/22/19 11/22/19 12:33 12:38 12:43 Temperature Pulse Rate 99 H 86 82 Respiratory Rate Blood Pressure 142/85 Blood Pressure [Right] O2 Sat by Pulse 99 100 99 Oximetry 11/22/19 11/22/19 11/22/19 12:48 12:53 12:58 Temperature Pulse Rate 82 83 87 Respiratory Rate Blood Pressure 134/83 Blood Pressure [Right] O2 Sat by Pulse 100 99 99 Oximetry 11/22/19 11/22/19 11/22/19 13:03 13:08 13:13 Temperature Pulse Rate 78 81 94 H Respiratory Rate Blood Pressure Blood Pressure [Right] O2 Sat by Pulse 97 98 99 Oximetry 11/22/19 11/22/19 13:18 13:23 Temperature Pulse Rate 92 H 92 H Respiratory Rate Blood Pressure 123/67 Blood Pressure [Right] O2 Sat by Pulse 99 100 Oximetry - Exam Cardiovascular: Regular rate Lungs: Normal air movement Abdomen: Present: normal appearance, soft Vulva: both: normal Uterus: Present: normal, fundal height above umbilicus FHR: category 1 Uterine Contraction Monitor Mode: Internal Cervical Dilatation: 7 Cervical Effacement Percentage: 80 station: 0 Uterine Contraction Frequency (min): 2-3 Uterine Contraction Duration: 60 Uterine Contraction Pattern: Regular Uterine Tone Measurement Phase: Contraction Uterine Contraction Intensity: Moderate Extremities: normal Deep Tendon Reflex Grade: Normal +2 - Labs Labs: Abnormal Labs 11/22/19 03:59 MCH 27 L Laboratory Results - last 24 hr 11/22/19 11/22/19 11/22/19 03:59 03:59 03:59 WBC 9.6 RBC 4.46 Hgb 12.0 Hct 36.7 MCV 82 MCH 27 L MCHC 33 RDW 15.2 Plt Count 319 Syphilis IgG Antibody Non-reactive Blood Type O POSITIVE Antibody Screen Negative
[2019-11-22] MEDS ORDERED: ACETAMINOPHEN 500 MG TAB PO ONE (14:00)
[2019-11-22] MEDS ORDERED: AMPICILLIN/NS 2 GM/100 ML 2 GM/100 ML BAG IV SCH (14:00)
--- NOTE | 2019-11-22 15:37 | Progress Note ---
Assessment and Plan patient remains comfortable. SVE now 9/100/+1, + molding, fat anterior lip noted. Temp now 100.4. Continue current management. Will reassess shortly. - Patient Problems (1) 39 weeks gestation of Current Visit: Yes Status: Acute (2) Rupture of membranes with meconium present Current Visit: Yes Status: Acute (3) Fever Current Visit: Yes Status: Acute Qualifiers: Fever type: fever during labor (maternal) Qualified Code(s): O75.2 - Pyrexia during labor, not elsewhere classified Subjective - Subjective Date of service: 11/22/19 Principal diagnosis: IUP @ 39 weeks, Laboring, mec stained fluid Patient reports: new complaints (comfortable with epidural replacement) Objective - Vital Signs Vital Signs: Vital Signs - 12hr 11/22/19 11/22/19 11/22/19 03:34 03:39 03:42 Temperature Pulse Rate 92 H 100 H 81 Blood Pressure O2 Sat by Pulse 100 98 92 Oximetry 11/22/19 11/22/19 11/22/19 03:44 03:49 04:00 Temperature Pulse Rate 81 97 H 34 L Blood Pressure O2 Sat by Pulse 99 100 83 L Oximetry 11/22/19 11/22/19 11/22/19 04:01 04:06 04:11 Temperature Pulse Rate 115 H 87 87 Blood Pressure O2 Sat by Pulse 96 100 96 Oximetry 11/22/19 11/22/19 11/22/19 04:13 04:16 04:18 Temperature Pulse Rate 67 75 68 Blood Pressure 121/60 115/57 O2 Sat by Pulse 100 Oximetry 11/22/19 11/22/19 11/22/19 04:21 04:24 04:26 Temperature Pulse Rate 62 74 76 Blood Pressure 115/66 O2 Sat by Pulse 100 100 Oximetry 11/22/19 11/22/19 11/22/19 04:29 04:31 04:34 Temperature Pulse Rate 71 82 66 Blood Pressure 138/59 122/61 O2 Sat by Pulse 99 Oximetry 11/22/19 11/22/19 11/22/19 04:36 04:39 04:41 Temperature Pulse Rate 75 70 67 Blood Pressure 127/69 O2 Sat by Pulse 100 100 Oximetry 11/22/19 11/22/19 11/22/19 04:43 04:46 04:48 Temperature Pulse Rate 84 84 81 Blood Pressure 112/58 108/59 O2 Sat by Pulse 100 Oximetry 11/22/19 11/22/19 11/22/19 04:51 04:54 04:56 Temperature Pulse Rate 79 80 100 H Blood Pressure 98/54 O2 Sat by Pulse 99 100 Oximetry 11/22/19 11/22/19 11/22/19 05:00 05:01 05:04 Temperature Pulse Rate 82 90 64 Blood Pressure 95/51 109/59 O2 Sat by Pulse 99 Oximetry 11/22/19 11/22/19 11/22/19 05:06 05:11 05:16 Temperature Pulse Rate 87 74 82 Blood Pressure O2 Sat by Pulse 100 99 100 Oximetry 11/22/19 11/22/19 11/22/19 05:21 05:24 05:26 Temperature Pulse Rate 82 81 90 Blood Pressure 107/63 O2 Sat by Pulse 100 99 Oximetry 11/22/19 11/22/19 11/22/19 05:31 05:36 05:38 Temperature Pulse Rate 92 H 96 H 108 H Blood Pressure 88/49 O2 Sat by Pulse 99 100 Oximetry 11/22/19 11/22/19 11/22/19 05:41 05:46 05:51 Temperature Pulse Rate 88 90 79 Blood Pressure O2 Sat by Pulse 100 100 100 Oximetry 11/22/19 11/22/19 11/22/19 05:54 05:56 06:01 Temperature Pulse Rate 80 81 86 Blood Pressure 111/58 O2 Sat by Pulse 100 99 Oximetry 11/22/19 11/22/19 11/22/19 06:06 06:08 06:11 Temperature Pulse Rate 90 81 84 Blood Pressure 103/51 O2 Sat by Pulse 99 100 Oximetry 11/22/19 11/22/19 11/22/19 06:16 06:21 06:25 Temperature Pulse Rate 83 75 74 Blood Pressure 113/59 O2 Sat by Pulse 98 100 Oximetry 11/22/19 11/22/19 11/22/19 06:26 06:31 06:36 Temperature Pulse Rate 73 77 77 Blood Pressure O2 Sat by Pulse 100 100 100 Oximetry 11/22/19 11/22/19 11/22/19 06:38 06:41 06:46 Temperature Pulse Rate 70 78 86 Blood Pressure 108/54 O2 Sat by Pulse 100 100 Oximetry 11/22/19 11/22/19 11/22/19 06:51 06:53 06:56 Temperature Pulse Rate 79 73 96 H Blood Pressure 100/54 O2 Sat by Pulse 100 100 Oximetry 11/22/19 11/22/19 11/22/19 07:01 07:06 07:09 Temperature Pulse Rate 75 95 H 78 Blood Pressure 103/72 O2 Sat by Pulse 100 100 Oximetry 11/22/19 11/22/19 11/22/19 07:11 07:16 07:21 Temperature Pulse Rate 92 H 108 H 88 Blood Pressure O2 Sat by Pulse 99 100 98 Oximetry 11/22/19 11/22/19 11/22/19 07:23 07:26 07:31 Temperature Pulse Rate 99 H 81 90 Blood Pressure 110/56 O2 Sat by Pulse 100 100 Oximetry 11/22/19 11/22/19 11/22/19 07:36 07:40 07:41 Temperature Pulse Rate 84 92 H 96 H Blood Pressure 95/56 O2 Sat by Pulse 100 100 Oximetry 11/22/19 11/22/19 11/22/19 07:46 07:51 07:53 Temperature Pulse Rate 93 H 104 H 104 H Blood Pressure 93/52 O2 Sat by Pulse 100 100 Oximetry 11/22/19 11/22/19 11/22/19 07:56 08:01 08:06 Temperature Pulse Rate 125 H 97 H 117 H Blood Pressure O2 Sat by Pulse 100 100 100 Oximetry 11/22/19 11/22/19 11/22/19 08:08 08:11 08:12 Temperature Pulse Rate 114 H 107 H 110 H Blood Pressure 92/49 102/62 O2 Sat by Pulse 100 Oximetry 11/22/19 11/22/19 11/22/19 08:16 08:21 08:23 Temperature Pulse Rate 109 H 92 H 93 H Blood Pressure 119/74 O2 Sat by Pulse 100 100 Oximetry 11/22/19 11/22/19 11/22/19 08:26 08:31 08:36 Temperature Pulse Rate 101 H 95 H 100 H Blood Pressure O2 Sat by Pulse 100 100 86 Oximetry 11/22/19 11/22/19 11/22/19 08:39 08:41 08:46 Temperature Pulse Rate 94 H 93 H 93 H Blood Pressure 117/73 O2 Sat by Pulse 86 100 100 Oximetry 11/22/19 11/22/19 11/22/19 08:51 08:53 08:56 Temperature Pulse Rate 90 80 89 Blood Pressure 105/61 O2 Sat by Pulse 100 99 Oximetry 11/21/20 11/21/20 11/22/19 08:59 09:01 09:06 Temperature 97.9 F Pulse Rate 91 H 91 H Blood Pressure O2 Sat by Pulse 99 99 Oximetry 11/21/20 11/21/20 20 09:08 09:11 09:16 Temperature Pulse Rate 86 89 90 Blood Pressure 107/61 O2 Sat by Pulse 98 99 Oximetry 20 11/21/20 11/22/19 09:21 09:24 09:26 Temperature Pulse Rate 91 H 84 97 H Blood Pressure 110/62 O2 Sat by Pulse 99 98 Oximetry 11/21/11/21/11/22/19 09:31 09:36 09:38 Temperature Pulse Rate 93 H 92 H 97 H Blood Pressure 106/60 O2 Sat by Pulse 98 99 Oximetry 11/22/1911/21/11/22/19 09:41 09:46 09:51 Temperature Pulse Rate 90 109 H 96 H Blood Pressure O2 Sat by Pulse 98 96 98 Oximetry 11/22/1911/21/11/22/19 09:55 09:56 10:01 Temperature Pulse Rate 95 H 109 H 103 H Blood Pressure 110/61 O2 Sat by Pulse 99 99 Oximetry 11/21/20 11/21/20 11/22/19 10:06 10:09 10:11 Temperature Pulse Rate 100 H 109 H 103 H Blood Pressure 113/61 O2 Sat by Pulse 98 98 Oximetry 20 11/21/20 11/22/19 10:16 10:21 10:25 Temperature Pulse Rate 103 H 99 H 96 H Blood Pressure 108/57 O2 Sat by Pulse 99 98 Oximetry 11/21/20 18/20 11/21/20 10:26 10:39 10:53 Temperature Pulse Rate 109 H 107 H 101 H Blood Pressure 126/72 130/72 O2 Sat by Pulse 100 Oximetry 11/21/20 18/20 11/22/19 11:08 11:23 11:55 Temperature Pulse Rate 106 H 85 100 H Blood Pressure 142/68 115/67 112/63 O2 Sat by Pulse Oximetry 11/21/20 11/21/20 11/22/19 12:33 12:38 12:43 Temperature Pulse Rate 99 H 86 82 Blood Pressure 142/85 O2 Sat by Pulse 99 100 99 Oximetry 11/22/19 11/22/19 11/22/19 12:48 12:53 12:58 Temperature Pulse Rate 82 83 87 Blood Pressure 134/83 O2 Sat by Pulse 100 99 99 Oximetry 11/22/19 11/22/19 11/22/19 13:03 13:08 13:13 Temperature Pulse Rate 78 81 94 H Blood Pressure O2 Sat by Pulse 97 98 99 Oximetry 11/22/19 11/22/19 11/22/19 13:18 13:23 13:28 Temperature 101.2 F H Pulse Rate 92 H 92 H 90 Blood Pressure 123/67 O2 Sat by Pulse 99 100 100 Oximetry 11/22/19 11/22/19 11/22/19 13:33 13:36 13:38 Temperature Pulse Rate 92 H 62 90 Blood Pressure 115/63 O2 Sat by Pulse 100 81 L 100 Oximetry 11/22/19 11/22/19 11/22/19 13:43 13:48 13:53 Temperature Pulse Rate 89 90 86 Blood Pressure 115/63 O2 Sat by Pulse 98 99 99 Oximetry 11/22/19 11/22/19 11/22/19 13:58 14:03 14:08 Temperature Pulse Rate 90 93 H 83 Blood Pressure 122/70 O2 Sat by Pulse 99 98 99 Oximetry 11/22/19 11/22/19 11/22/19 14:13 14:18 14:23 Temperature Pulse Rate 85 93 H 100 H Blood Pressure 118/63 O2 Sat by Pulse 100 99 99 Oximetry 11/22/19 11/22/19 11/22/19 14:25 14:28 14:33 Temperature Pulse Rate 101 H 92 H 85 Blood Pressure O2 Sat by Pulse 81 L 99 100 Oximetry 11/22/19 11/22/19 11/22/19 14:38 14:39 14:43 Temperature Pulse Rate 86 86 87 Blood Pressure 127/77 O2 Sat by Pulse 98 98 Oximetry 11/22/19 11/22/19 11/22/19 14:48 14:53 14:54 Temperature Pulse Rate 90 86 86 Blood Pressure 114/64 O2 Sat by Pulse 98 100 Oximetry 11/22/19 11/22/19 11/22/19 14:58 15:03 15:08 Temperature Pulse Rate 89 85 84 Blood Pressure O2 Sat by Pulse 98 98 99 Oximetry 11/22/19 11/22/19 11/22/19 15:09 15:13 15:18 Temperature Pulse Rate 88 99 H 89 Blood Pressure 124/74 O2 Sat by Pulse 96 99 Oximetry 11/22/19 11/22/19 11/22/19 15:23 15:24 15:28 Temperature Pulse Rate 86 100 H 87 Blood Pressure 126/78 O2 Sat by Pulse 100 99 Oximetry - Exam Breasts: normal Cardiovascular: Regular rate Lungs: Normal air movement Abdomen: Present: normal appearance, soft Vulva: both: normal Uterus: Present: normal Uterine Contraction Monitor Mode: Internal Cervical Dilatation: 9 Cervical Effacement Percentage: 100 station: +1 Uterine Contraction Frequency (min): 2-3 Uterine Contraction Duration: 60 Uterine Contraction Pattern: Regular Uterine Tone Measurement Phase: Contraction Uterine Contraction Intensity: Strong/Firm Extremities: normal Deep Tendon Reflex Grade: Normal +2 - Labs Labs: Abnormal Labs 11/22/19 03:59 MCH 27 L Laboratory Results - last 24 hr 11/22/19 11/22/19 11/22/19 03:59 03:59 03:59 WBC 9.6 RBC 4.46 Hgb 12.0 Hct 36.7 MCV 82 MCH 27 L MCHC 33 RDW 15.2 Plt Count 319 Syphilis IgG Antibody Non-reactive Blood Type O POSITIVE Antibody Screen Negative
[2019-11-22] MEDS ORDERED: miSOPROStol 200 MCG TAB ONE (17:20)
[2019-11-22] MEDS ORDERED: miSOPROStol 200 MCG TAB PR ONE (17:31)
--- NOTE | 2019-11-22 17:31 | Procedure Note ---
OB Delivery Note - Delivery Date of Delivery: 11/22/19 ( female ) Pan Devulcanizer: ALEX MARADIAGA Estimated blood loss: 500cc - Vaginal Delivery presentation: vertex Delivery position: OA Intrapartum events: febrile- temp >100.3, PROM->1hr before delivery, meconium, shoulder dystocia (<30 seconds), uterine atony Delivery induction: oxytocin Delivery augmentation: pitocin Delivery monitor: external FHT, internal uterine Route of delivery: Delivery placenta: spontaneous Delivery cord: 3 umbilical vessels, other Episiotomy: none Delivery laceration: none Anesthesia: epidural Delivery comments: female infant del over intact perineum, rotated from OP to OA, anterior shoulder left. mild shoulder dystocia <30 seconds resolved with travon and suprapubic pressure along with maternal pushing efforts. Placenta delivered intact and complete, sent to Pathology. no lacerations to repair. Uterine atony after delivery resolved with fundal massage, IV pitocin bolus and rectal cytotec. EBL 500, apgars 7/8, wt 6#15oz. Mother and infant remain LDR stable. - Infant A at 1 minute: 7 at 5 minutes: 8 Infant Gender: Female (6#15oz)
--- NOTE | 2019-11-22 17:42 | Event Note ---
Date: 11/22/19 Will add gentamicin and continue ampicillin x 3 doses. Pt continued to have minimal concentrated urine output. Suspect dehydration but will check CMP. Straight cath approx 200ml post delivery.
[2019-11-22 19:31] LABS: Albumin 3.1 g/dL (3.9-5)
[2019-11-22] MEDS ORDERED: ONDANSETRON 4 MG/2 ML INJ IV PRN (21:51)
[2019-11-22] MEDS ORDERED: BENZOCAINE/MENTHOL 20/0.5% TOP SPRAY 56 GM TP PRN (21:51)
[2019-11-22] MEDS ORDERED: LANOLIN/ZINC/DIMETHICONE (LANSINOH) 7 GM TP PRN (21:51)
[2019-11-22] MEDS ORDERED: MAGNESIUM HYDROXIDE (MOM) ORAL LIQD UDC PO PRN (21:51)
[2019-11-22] MEDS ORDERED: ACETAMINOPHEN 325 MG TAB PO PRN (21:51)
[2019-11-22] MEDS ORDERED: WITCH HAZEL/ GLYCERIN PAD TP PRN (21:51)
[2019-11-22] MEDS: IBUPROFEN 800 MG TAB PO SCH (22:08)
[2019-11-22] MEDS ORDERED: SODIUM CHLORIDE 0.9% 500 ML 500 ML ONE (22:37)
[2019-11-22] MEDS: AMPICILLIN/NS 2 GM/100 ML 2 GM/100 ML BAG IV SCH (22:40)
[2019-11-23] MEDS ORDERED: IBUPROFEN 800 MG TAB PO SCH
[2019-11-23] MEDS: GENTAMICIN/NS 80 MG/100 ML 100 ML IV SCH ×3 (00:17→16:10)
[2019-11-23] MEDS: AMPICILLIN/NS 2 GM/100 ML 2 GM/100 ML BAG IV SCH ×2 (04:01→09:31)
[2019-11-23] MEDS: IBUPROFEN 800 MG TAB PO SCH ×3 (04:57→17:26)
[2019-11-23 05:52] LABS: Hematocrit 31.5 % (30.3-42.9)
[2019-11-23] MEDS ORDERED: TETANUS,DIPH,PERTUSS(ACELL) VACCINE 0.5 ML SYRINGE IM ONE (06:00)
[2019-11-23] MEDS: PRENATAL VIT27-FE FUMARATE-FOLIC ACID VIT TAB PO SCH (09:31)
[2019-11-23] MEDS: DOCUSATE SODIUM 100 MG CAP PO SCH ×2 (09:31→22:00)
[2019-11-23] MEDS: FERROUS SULFATE 325 MG TAB PO SCH ×2 (09:31→21:59)
--- NOTE | 2019-11-23 11:41 | Progress Note ---
Assessment and Plan patient doing well, VSSAF, H&H 10.0/31.5, lochia scant, fundus firm. - Patient Problems (1) Fever Current Visit: No Status: Acute Qualifiers: Fever type: fever during labor (maternal) Qualified Code(s): O75.2 - Pyrexia during labor, not elsewhere classified Plan to address problem: Last fever 102.0 @ 1845 11/22/19 Abd soft and nontender denies SOB, cough, body aches Continue monitoring of temperature and IV ABX consider d/c home tomorrow if no additional fever BC x 2 pending (2) Decreased urine output Current Visit: Yes Status: Resolved Plan to address problem: urine output normal post delivery (3) (normal spontaneous vaginal delivery) Current Visit: Yes Status: Acute Plan to address problem: continue pathway Subjective - Subjective Date of service: 11/23/19 Principal diagnosis: day #1 s/p , maternal fever Patient reports: appetite normal, voiding normally, pain well controlled, ambulating normally, no dizzy ambulation, no nauseated : doing well, bottle feeding Objective - Vital Signs Latest vital signs: Vital Signs Temp Pulse Resp BP BP Pulse Ox 11/23/19 08:31 97.9 F 87 20 99/54 99 11/23/19 03:39 98.0 F 81 20 111/56 100 11/22/19 23:53 98.2 F 91 H 20 108/57 100 11/22/19 19:44 151 H 83 L 11/22/19 19:43 97.7 F 73 20 115/54 100 11/22/19 19:42 96 H 115/57 11/22/19 19:38 102 H 99 11/22/19 19:33 117 H 100 11/22/19 19:28 99 H 98 11/22/19 19:23 97 H 112/58 100 11/22/19 19:18 97 H 99 11/22/19 19:13 101 H 100 11/22/19 19:08 99 H 109/58 100 11/22/19 19:03 93 H 100 11/22/19 18:58 111 H 100 11/22/19 18:53 99 H 122/58 100 11/22/19 18:48 101 H 99 11/22/19 18:45 102 F H 85 04/18/20 18:43 113 H 100 04/18/20 18:38 112 H 99 04/18/20 18:33 106 H 100 04/18/20 18:28 95 H 100 04/18/20 18:23 93 H 149/87 77 L 04/18/20 18:20 123 H 85 04/18/20 18:18 106 H 98 04/18/20 18:13 89 99 04/18/20 18:08 90 150/88 99 04/18/20 18:03 93 H 98 04/18/20 17:58 92 H 98 04/18/20 17:53 95 H 149/90 100 04/18/20 17:48 96 H 100 04/18/20 17:43 102 H 99 04/18/20 17:38 136 H 121/81 100 04/18/20 17:33 129 H 99 04/18/20 17:31 83 L 04/18/20 17:28 136 H 88 04/18/20 17:23 102 H 120/73 96 04/18/20 17:18 120 H 98 04/18/20 17:13 118 H 100 04/18/20 17:08 105 H 115/58 04/18/20 17:04 90 100 04/18/20 17:01 63 L 18/20 16:59 37 L 89 0418/20 16:54 139 H 100 04/18/20 16:53 131 H 107/53 04/18/20 16:49 115 H 100 04/18/20 16:44 45 L 89 04/18/20 16:38 107 H 126/66 100 04/18/20 16:33 120 H 100 04/18/20 16:28 101 H 98 04/18/20 16:24 97 H 118/74 04/18/20 16:23 98 H 98 04/18/20 16:18 96 H 99 04/18/20 16:13 92 H 100 04/18/20 16:08 90 118/60 99 04/18/20 16:03 90 99 04/18/20 15:58 94 H 99 04/18/20 15:53 87 99/58 99 04/18/20 15:48 84 98 04/18/20 15:43 83 98 04/18/20 15:39 86 113/60 04/18/20 15:38 100.4 F H 84 96 1820 15:33 87 98 18/20 15:28 87 99 20 15:24 100 H 126/78 20 15:23 86 100 20 15:18 89 99 20 15:13 99 H 96 20 15:09 88 124/74 20 15:08 84 99 20 15:03 85 98 20 14:58 89 98 20 14:54 86 114/64 20 14:53 86 100 20 14:48 90 98 11/22/19 14:43 87 98 11/22/19 14:39 86 127/77 11/22/19 14:38 86 98 11/22/19 14:33 85 100 11/22/19 14:28 92 H 99 11/22/19 14:25 101 H 81 L 11/22/19 14:23 100 H 118/63 99 11/22/19 14:18 93 H 99 11/22/19 14:13 85 100 11/22/19 14:08 83 122/70 99 20 14:03 93 H 98 11/22/19 13:58 90 99 20 13:53 86 115/63 99 11/22/19 13:48 90 99 20 13:43 89 98 20 13:38 90 115/63 100 20 13:36 62 81 L 11/22/19 13:33 92 H 100 20 13:28 101.2 F H 90 100 20 13:23 92 H 123/67 100 20 13:18 92 H 99 20 13:13 94 H 99 20 13:08 81 98 11/22/19 13:03 78 97 11/22/19 12:58 87 99 20 12:53 83 134/83 99 20 12:48 82 100 11/22/19 12:43 82 99 11/22/19 12:38 86 142/85 100 11/22/19 12:33 99 H 99 11/22/19 11:55 100 H 112/63 Intake and Output 11/22/19 11/23/19 11/23/19 23:59 07:59 15:59 Intake Total 288.700 440 240 Output Total 275 1400 Balance 13.700 -960 240 Intake: IV 288.700 200 AMPICILLIN/NS 2 GM/100 ML 100 100 2 gm In 100 ml @ 100 mls /hr IV Q6H [facility] Rx#: [id number] Gentamicin/Ns 80 mg/100 100 ml 100 ml @ 200 mls/hr IV Q8H [facility] Rx#:[id number] Lactated Ringers 1,000 ml 175 @ 125 mls/hr IV DIRECT [facility] Rx#:[id number] PITOCin/NS 30 UNIT/500ML 13.700 30 units In 500 ml @ 2 mls/hr IV TITR [facility] Rx#: [id number] Oral 240 240 Output: Urine 275 1400 Self-Catheterization 275 Void 1400 Other: Total, Intake Amount 240 240 Total, Output Amount 275 800 # Voids Self-Catheterization 1 Void 3 1 Estimated Blood Loss 500 - Exam Breasts: Present: normal Cardiovascular: Present: Regular rate Lungs: Present: Clear to auscultation, Normal air movement Abdomen: Present: normal appearance, soft, normal bowel sounds Vulva: both: normal Uterus: Present: normal, firm, fundal height below umbilicus Extremities: Present: normal Deep Tendon Reflex Grade: Normal +2 - Labs Labs: Abnormal lab results 11/22/19 11/23/19 Range/Units 18:49 05:25 Hgb 10.0 L (10.1-14.3) gm/dl Sodium 136 L (137-145) mmol/L Carbon Dioxide 17 L (22-30) mmol/L Creatinine 1.4 H (0.7-1.2) mg/dL Glucose 105 H (65-100) mg/dL Alkaline Phosphatase 151 H (35-129) units/L Total Protein 5.3 L (6.3-8.2) g/dL Albumin 3.1 L (3.9-5) g/dL
--- NOTE | 2019-11-23 16:55 | Post Anesthesia Evaluation ---
- Post Anesthesia Evaluation Patient Participated: Yes Airway Patent: Yes Stable Respiratory Function: Yes Nausea/Vomiting: No Temp > 96.8F: Yes Pain Manageable: Yes Adequeate Hydration: Yes Anesthesia Complications: No Block Receding Appropriately: Yes
[2019-11-24] MEDS: IBUPROFEN 800 MG TAB PO SCH ×3 (05:20→17:15)
--- NOTE | 2019-11-24 06:37 | Discharge Summary ---
Providers - Providers Date of Admission: 11/22/19 01:32 Date of discharge: 11/24/19 (Pt in good spirits desires d/c) Attending physician: GRISELDA NARVAEZ Primary care physician: GRISELDA NARVAEZ Hospitalization Reason for admission: active labor Delivery: Episiotomy: none Laceration: 1st degree Incision: normal, dry, intact Other procedures: none complications: none Discharge diagnosis: IUP at term delivered [place] baby: female Hospital course: uncomplicated vaginal delivery Pt resting No c/o voiced. VSS FF below umb Lochia small Perineum slight swelling intact H&H stable Doing well s/p vag delivery P: d/c today with instructions F/U 4 weeks Condition at discharge: Good Disposition: DC-01 TO HOME OR SELFCARE - Discharge Diagnoses (1) (normal spontaneous vaginal delivery) Status: Acute Comment: RTO 4 weeks PP care Plan - Provider Discharge Summary Activity: routine, no sex for 6 weeks, no heavy lifting 4 weeks, no strenuous exercise Diet: routine Instructions: routine Additional instructions: [] Smoking cessation referral if applicable(refer to patient education folder for contact #) [] Refer to [facility] Booklet Call your doctor immediately for: * Fever > 100.5 * Heavy vaginal bleeding ( >1 pad per hour) * Severe persistent headache * Shortness of breath * Reddened, hot, painful area to leg or breast * Drainage or odor from incision. * Keep incision clean and dry at all times and follow doctor's instructions regarding bathing/showering - Follow up plan Follow up: GRISELDA NARVAEZ MD [Primary Care Provider] - 12/22/19 (Congratulations! Call [phone] to schedule visit in 4 weeks. Motrin/ibuprofen for cramping/pain. Use Tucks pads and Dermaplast spray for any pain on perineum. Call with concerns.)
[2019-11-24] MEDS ORDERED: medroxyPROGESTERone ACETATE 150 MG/ML SYRINGE IM ONE ×2 (07:00→17:00)
[2019-11-24] MEDS: FERROUS SULFATE 325 MG TAB PO SCH (11:00)
[2019-11-24] MEDS: DOCUSATE SODIUM 100 MG CAP PO SCH (11:00)
[2019-11-24] MEDS: PRENATAL VIT27-FE FUMARATE-FOLIC ACID VIT TAB PO SCH (11:00)
[2019-11-24 16:59] VITALS: BP 122/62
== END 2019-11-24 17:53 | disposition home or self-care (01) | DRG 774 ==
LOC: TRG 23:40 → APU 23:41 → TRG 11-22 01:32 → LD 11-22 01:32 → OB 11-22 21:23
PROVIDERS: ADMIT Obstetrics & Gynecology; ATTEND Obstetrics & Gynecology
PROC: 10E0XZZ Delivery of Products of Conception, External Approach (ICD-10-PCS; principal; 2019-11-22)
PROC: 3E0R3BZ Introduction of Anesthetic Agent into Spinal Canal, Percutaneous Approach (ICD-10-PCS; 2019-11-22)
PROC: 00HU33Z Insertion of Infusion Device into Spinal Canal, Percutaneous Approach (ICD-10-PCS; 2019-11-22)
PROC: 3E033VJ Introduction of Other Hormone into Peripheral Vein, Percutaneous Approach (ICD-10-PCS; 2019-11-22)
PROC: 0HQ9XZZ Repair Perineum Skin, External Approach (ICD-10-PCS; 2019-11-22)
PROC: 3E0234Z Introduction of Serum, Toxoid and Vaccine into Muscle, Percutaneous Approach (ICD-10-PCS; 2019-11-23)
DX: O77.0 Labor and delivery complicated by meconium in amniotic fluid (principal); O75.2 Pyrexia during labor, not elsewhere classified; O66.0 Obstructed labor due to shoulder dystocia; O70.0 First degree perineal laceration during delivery; O42.02 Full-term premature rupture of membranes, onset of labor within 24 hours of rupture; O62.2 Other uterine inertia; Z3A.39 39 weeks gestation of pregnancy; Z37.0 Single live birth; Z23 Encounter for immunization
CPT/HCPCS: 36415; 59025; 80053; 85014; 85018; 85027; 86592; 86762; 86850; 86900; 86901; 87040; 88307; 96360; 96361; 96374; G0378; J0290; J1050; J1200; J1580; J2300; J2405; J2590; J3010; J3490; J7040; J7120